=== PATIENT | male | born 1960 | race African-American/Black ===

== ENCOUNTER 2017-03-07 09:11 | Emergency (ER) | payer OTHER, BC ==
[~2017-03-07] VITALS: Ht 152.4 cm; Wt 120.0 kg
[~2017-03-07 09:11] MED LIST: AVAPRO300 MG OR; BACTRIM DS1 TAB PO; COZAAR50 MG PO; CRESTOR10 MG OR; FLEXERIL OR; METO50TA52 PO; NAPROSYN375 MG OR; NAPROSYN500 MG PO; NO HOME MEDS; NORCO1 TA1 PO; PLAVIX75 MG OR; SM ASPIRIN81 M1 OR; TENORMIN25 MG OR; TORADOL PO; ULTRAM50 M1 OR; VERELAN OR
[2017-03-07 10:37] VITALS: BP 179/91
== END 2017-03-07 10:44 | disposition home or self-care (01) | DRG 179 ==
LOC: ED 09:11
DX: R76.11 Nonspecific reaction to tuberculin skin test without active tuberculosis (principal)